=== PATIENT | female | born 1975 | race Caucasian/White ===

== ENCOUNTER 2017-01-02 16:18 | Emergency (ER) | payer BC ==
[2017-01-02] MEDS ORDERED: Ketorolac 60 MG/2 ML SDV IM ONE (16:49)
--- NOTE | 2017-01-02 16:52 | EDM.PDOC ---
ED HPI GENERAL MEDICAL PROBLEM - General Chief Complaint: Chest Pain Stated Complaint: CHEST PAIN Time Seen by Provider: 01/02/17 16:43 Source of Information: Reports: Patient, Family, RN Notes Reviewed History Limitations: Reports: No Limitations - History of Present Illness INITIAL COMMENTS - FREE TEXT/NARRATIVE: 41-year-old female presents emergency department day complaint of chest pain, she states the pain started a couple hours ago it is sharp stabbing came on at rest she does feel short of breath no nausea or diaphoresis and no history of heart disease remote history with her grandfather she does use tobacco products no history of diabetes Left Chest Pain Score (Numeric/FACES): 6 - Related Data Allergies Allergy/AdvReac Type Severity Reaction Status Date / Time fluticasone [From Flonase] AdvReac Headache Verified 01/02/17 16:24 Home Meds: Home Meds Fexofenadine [Dinora] 1 tab PO BEDTIME 01/02/17 [History] Levothyroxine [Synthroid] 1 tab PO DAILY 01/02/17 [History] Multivitamin [Multivitamins] 1 tab PO DAILY 01/02/17 [History] Sertraline [Zoloft] 1 tab PO DAILY 01/02/17 [History] Past Medical History Genitourinary History: Reports: Other (See Below) Other Genitourinary History: genetic disease of the kidney, 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 Psychiatric History: Reports: Depression Endocrine/Metabolic History: Reports: Hypothyroidism - Past Surgical History HEENT Surgical History: Reports: Adenoidectomy, Tonsillectomy Female Surgical History: Reports: Other (See Below) Other Female Surgeries/Procedures: re-implantation of ureters to the kidneys Social & Family History - Tobacco Use Smoking Status *Q: Heavy Tobacco Smoker Years of Tobacco use: 22 Packs/Tins Daily: 1 - Recreational Drug Use Recreational Drug Use: No ED ROS GENERAL - Review of Systems Review Of Systems: See Below Constitutional: Reports: No Symptoms HEENT: Reports: No Symptoms Respiratory: Reports: Shortness of Breath Cardiovascular: Reports: Chest Pain GI/Abdominal: Reports: No Symptoms : Reports: No Symptoms Musculoskeletal: Reports: No Symptoms Skin: Reports: No Symptoms Neurological: Reports: No Symptoms Psychiatric: Reports: No Symptoms. Denies: Anxiety ED EXAM, GENERAL - Physical Exam Exam: See Below Free Text/Narrative:: General: Female, not in any distress, alert and oriented x3 HEENT: head is atraumatic normocephalic, eyes pupils equal round reactive to light, sclera clear no conjunctivitis appreciated. Ears tympanic membranes clear and clark landmarks and light reflex are present bilaterally canals are clear. Nose no septal deviation, nares are clear, no blood present. Mouth mucosa is moist and pink no erythema or exudate noted in soft palate, tongue is midline uvula is midline, dentition is intact. Neck: Supple no thyromegaly no tracheal deviation. Nodes: Cervical nodes subclavicular nodes nontender no palpable lymphadenopathy noted. Lungs: clear to auscultation bilaterally with symmetrical respirations, no adventitious noise appreciated. CV: Regular rate and rhythm S1 and S2 appreciated no murmurs rubs or gallops noted. Thorax tender to palpation in the anterior area left chest Abdomen: Soft, nontender, no palpable masses or organomegaly appreciated, no distention no guarding bowel sounds are present, Neuro: Cranial nerves II through XII grossly intact Skin: Warm and dry, intact Extremities: No lower extremity edema appreciated, pedal pulse is +2. Course - Vital Signs Last Recorded V/S: Last Vital Signs Temp 97.9 F 01/02/17 16:22 Pulse 97 01/02/17 16:22 Resp 14 01/02/17 16:22 BP 137/82 01/02/17 16:22 Pulse Ox 96 01/02/17 16:22 - Orders/Labs/Meds Orders: Active Orders 24 hr Category Date Time Status Cardiac Monitoring [RC] .As Directed Care 01/02/17 16:47 Active EKG Documentation Completion [RC] ASDIRECTED Care 01/02/17 16:49 Active Chest 2V [CR] Stat Exams 01/02/17 16:49 Taken EKG 12 Lead [EK] Stat Ther 01/02/17 16:49 Ordered Labs: Laboratory Tests 01/02/17 01/02/17 Range/Units 16:47 16:47 WBC 18.0 H (4.5-11.0) K/uL RBC 4.70 (3.30-5.50) M/uL Hgb 13.5 (12.0-15.0) g/dL Hct 40.8 (36.0-48.0) % MCV 87 (80-98) fL MCH 29 (27-31) pg MCHC 33 (32-36) % Plt Count 380 (150-400) K/uL Neut % (Auto) 71 H (36-66) % Lymph % (Auto) 19 L (24-44) % [place] % (Auto) 6 (2-6) % Eos % (Auto) 3 (2-4) % Baso % (Auto) 1 (0-1) % Sodium 141 (140-148) mmol/L Potassium 3.7 (3.6-5.2) mmol/L Chloride 105 (100-108) mmol/L Carbon Dioxide 29 (21-32) mmol/L Anion Gap 6.6 (5.0-14.0) mmol/L BUN 8 (7-18) mg/dL Creatinine 1.0 (0.6-1.0) mg/dL Est Cr Clr Drug Dosing 67.96 mL/min Estimated GFR (MDRD) > 60 (>60) Glucose 98 (74-106) mg/dL Calcium 8.8 (8.5-10.1) mg/dL Total Bilirubin 0.3 (0.2-1.0) mg/dL AST 13 L (15-37) U/L ALT 19 (12-78) U/L Alkaline Phosphatase 84 (46-116) U/L CK-MB (CK-2) 0.9 (0-3.6) mg/mL Troponin I < 0.017 (0.000-0.056) ng/mL Total Protein 7.6 (6.4-8.2) g/dL Albumin 3.6 (3.4-5.0) g/dL Globulin 4.0 H (2.3-3.5) g/dL Albumin/Globulin Ratio 0.9 L (1.2-2.2) Meds: Medications Discontinued Medications Generic Name Dose Route Start Last Admin Trade Name Janq PRN Reason Stop Dose Admin Ketorolac Tromethamine 60 mg 01/02/17 16:49 01/02/17 17:06 Toradol IM 01/02/17 16:50 60 mg ONETIME ONE Administration Departure - Departure Time of Disposition: 17:49 Disposition: Home, Self-Care 01 Condition: Good Clinical Impression: Atypical chest pain Forms: ED Department Discharge Additional Instructions: Continue on your regular medications, recommend follow-up with your primary care for further evaluation of year elevated WBC Please followup with your primary care provider in 3-5 days if not better, please call return to the emergency department with worsening of symptoms. - My Orders Last 24 Hours: My Active Orders 01/02/17 16:47 Cardiac Monitoring [RC] .As Directed 01/02/17 16:49 EKG Documentation Completion [RC] ASDIRECTED Chest 2V [CR] Stat EKG 12 Lead [EK] Stat - Assessment/Plan Last 24 Hours: My Active Orders 01/02/17 16:47 Cardiac Monitoring [RC] .As Directed 01/02/17 16:49 EKG Documentation Completion [RC] ASDIRECTED Chest 2V [CR] Stat EKG 12 Lead [EK] Stat Plan: Assessment Acuity = acute Site and laterality = atypical chest pain, cocaine the patient with history of hypothyroidism Etiology = unclear etiology Manifestations = none Location of injury = Home Lab values = WBC elevated at 18 consistent leukocytosis however this is near her baseline which surround 14, troponin was negative remainder of CBC also negative EKG shows no acute process no ST elevations or depressions, chest x- ray I did review films myself I cannot appreciate any acute process, the official read from radiology is pending Plan I did review lab work EKG and chest x-ray results with her she did receive some relief with Toradol injection provided plan is to continue with the ibuprofen however she is to follow-up with her primary care provider for further evaluation of the elevated WBC which has been abnormal for over a year, heart score was 1 Patient was in agreement with the plan all questions were answered, they were instructed to return to the emergency department or call for worsening symptoms. This note was dictated using [employer] voice recognition software please call with any questions.
[2017-01-02 17:50] VITALS: BP 113/69
--- NOTE | 2017-01-03 09:57 | CR ---
Chest 2V INDICATION: Chest Pain COMPARISON: None FINDINGS: Two views. Heart size normal. Lungs are clear. No infiltrate or pleural effusion. No si gns of pulmonary edema. IMPRESSION: Negative chest.
== END 2017-01-02 18:03 | disposition home or self-care (01) ==
LOC: JP.ED 16:18
DX: R07.89 Other chest pain (principal); E03.9 Hypothyroidism, unspecified; F17.210 Nicotine dependence, cigarettes, uncomplicated; Z98.890 Other specified postprocedural states; Z79.899 Other long term (current) drug therapy; Z88.8 Allergy status to other drugs, medicaments and biological substances
CPT/HCPCS: 36415; 71020; 80053; 82553; 84484; 85025; 93005; 96372; 99285; J1885

== ENCOUNTER 2018-06-12 06:02 | Day surgery (SDC) | payer BC ==
[2018-06-12] MEDS ORDERED: Dextrose 5%-Lactated Ringers 1,000 ML IV SCH (06:30)
[2018-06-12] MEDS ORDERED: Midazolam 1 MG/ML 2 ML SDV ONE (07:17)
[2018-06-12] MEDS ORDERED: fentaNYL 100 MCG/2 ML SDV ONE (07:17)
[2018-06-12] MEDS ORDERED: Propofol 200 MG/20 ML SDV ONE (07:17)
[2018-06-12 09:59] VITALS: BP 119/78
--- NOTE | 2018-06-14 11:22 | OR ---
DATE OF PROCEDURE: 06/12/2018 PREOPERATIVE DIAGNOSIS: Fatigue associated with chronic diarrhea. POSTOPERATIVE DIAGNOSES: 1. Fatigue and chronic diarrhea. 2. Single small polyp in distal sigmoid colon (20 cm). 3. Otherwise normal-appearing colorectal mucosa. OPERATIVE PROCEDURES: Flexible colonoscopy with: 1. Collection of stool for microbiologic workup. 2. Random colorectal biopsies to rule out microscopic colitis (47851). 3. Polypectomy by snare technique at the site of sigmoid colon polyp (61323). ANESTHESIA: IV sedation. INDICATION FOR PROCEDURE: This is a 43-year-old presenting with some fatigue as well as some chronic diarrhea with frequent loose bowel movements. The plan is to proceed with a flexible colonoscopy with biopsies and/or polypectomy as indicated. We will also obtain collection of any remaining stool for microbiologic workup. Potential risks of the procedure including bleeding and perforation were discussed, and the patient wishes to proceed. DETAILS OF PROCEDURE: The patient was taken to the operating room and placed in a left lateral decubitus position. IV sedation was administered, after which the initial digital rectal exam was performed and was unremarkable. Colonoscope was then passed into the rectum with retroflexion revealing uncomplicated hemorrhoidal columns. The scope was then eventually passed to the cecum. The prep was quite good with there only being a small amount of stool present. The stool present did have a slightly mucoid consistency to it. The patient had a small polyp ranging around 3 mm in the distal sigmoid colon. Otherwise, there were no additional abnormalities in the colorectal mucosa identifiable. The patient had no diverticular disease. At this point, biopsies were obtained randomly beginning at the cecum, throughout the colon and rectum, and sent for histologic evaluation to rule out microscopic colitis. The area of polyp was encircled with a snare at the base and then cauterized off, and then this was retrieved and sent for histologic evaluation. Good hemostasis was noted at the polypectomy site. The scope was then withdrawn. The procedure was then concluded. The patient was taken to the recovery room in a satisfactory condition. The patient will be following up in early June with Dr. Hackett. If any striking findings are seen on the microbiologic workup or histologic evaluation in the interim, we will contact the patient earlier. Rupert Segundo MD Job #: [id number]
== END 2018-06-12 10:10 | disposition home or self-care (01) ==
LOC: JP.SDS 06:02
PROVIDERS: ATTEND Surgery
DX: K52.9 Noninfective gastroenteritis and colitis, unspecified (principal); R53.83 Other fatigue; K63.5 Polyp of colon; F17.200 Nicotine dependence, unspecified, uncomplicated
CPT/HCPCS: 45380; 45385; 87046; 87177; 87209; 87493; 87899; 88305; 89055; J2250; J2704; J3010; J7042

== ENCOUNTER 2018-07-16 01:51 | Observation (INO) | payer BC ==
[2018-07-16] MEDS ORDERED: Ketorolac 60 MG/2 ML SDV IM ONE (02:59)
[2018-07-16] MEDS ORDERED: Albuterol/Ipratropium 3.0-0.5 MG/3 ML Neb Soln NEB ONE (02:59)
[2018-07-16] MEDS ORDERED: Acetaminophen 325 MG Tab PO ONE (03:00)
--- NOTE | 2018-07-16 03:03 | EDM.PDOC ---
ED HPI GENERAL MEDICAL PROBLEM - General Chief Complaint: Respiratory Problem Stated Complaint: INFLUENZA A, BREATHING IS WORSE Time Seen by Provider: 07/16/18 02:54 Source of Information: Reports: Patient, Family, RN Notes Reviewed History Limitations: Reports: No Limitations - History of Present Illness INITIAL COMMENTS - FREE TEXT/NARRATIVE: 43-year-old female presents to the emergency department today with complaint of shortness of breath, she was recently diagnosed with influenza a started on Tamiflu, she is continued to have fevers body aches and now feels chest heaviness and difficulty breathing, was found to be hypoxic on initial admission Treatments 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: 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: Other (see below) Other Treatments 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: tamilflu - Related Data Allergies Allergy/AdvReac Type Severity Reaction Status Date / Time fluticasone [From Flonase] AdvReac Headache Verified 07/16/18 02:40 Home Meds: Home Meds Fexofenadine [Dinora] 180 mg PO BEDTIME 01/02/17 [History] Levothyroxine [Synthroid] 75 mcg PO DAILY 01/02/17 [History] Multivitamin [Multivitamins] 1 tab PO DAILY 01/02/17 [History] Sertraline [Zoloft] 100 mg PO DAILY 01/02/17 [History] Albuterol [Ventolin HFA] 2 puff IH Q4HR PRN 06/09/18 [History] Calcium Carbonate [Tums] 500 mg PO ASDIRECTED PRN 06/09/18 [History] Lactobacillus Acidophilus [Acidophilus] 1 each PO DAILY 06/09/18 [History] Mometasone Furoate [Nasonex] 2 sprays PETAR DAILY 06/09/18 [History] Fluticasone/Vilanterol [Breo Ellipta 100-25 MCG Inhalation Kit] 1 each IH [History] Past Medical History HEENT History: Reports: Other (See Below) Other HEENT History: wears glasses Cardiovascular History: Reports: Other (See Below) Other Cardiovascular History: chest pain - seen in ER x 1 Gastrointestinal History: Reports: Chronic Diarrhea Genitourinary History: Reports: Other (See Below) Other Genitourinary History: genetic disease of the kidney, 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 Psychiatric History: Reports: Depression Endocrine/Metabolic History: Reports: Hypothyroidism Dermatologic History: Reports: Other (See Below) Other Dermatologic History: adult acne - Infectious Disease History Infectious Disease History: Reports: Chicken Pox, Influenza - Past Surgical History HEENT Surgical History: Reports: Adenoidectomy, Tonsillectomy Female Surgical History: Reports: Other (See Below) Other Female Surgeries/Procedures: re-implantation of ureters to the kidneys Social & Family History - Tobacco Use Smoking Status *Q: Current Every Day Smoker Years of Tobacco use: 23 Packs/Tins Daily: 0.5 Second Hand Smoke Exposure: Yes - Caffeine Use Caffeine Use: Reports: Coffee, Soda - Recreational Drug Use Recreational Drug Use: No ED ROS GENERAL - Review of Systems Review Of Systems: See Below Constitutional: Reports: Fever, Chills, Weakness, Other (Body aches) HEENT: Reports: No Symptoms Respiratory: Reports: Shortness of Breath, Cough Cardiovascular: Reports: Chest Pain GI/Abdominal: Reports: No Symptoms : Reports: No Symptoms Musculoskeletal: Reports: No Symptoms Skin: Reports: No Symptoms Neurological: Reports: No Symptoms ED EXAM, GENERAL - Physical Exam Exam: See Below Exam Limited By: No Limitations General Appearance: Alert, No Apparent Distress Throat/Mouth: Normal Inspection, Normal Lips, Normal Teeth, Normal Gums, Normal Oropharynx, Normal Voice, No Airway Compromise Head: Atraumatic, Normocephalic Neck: Normal Inspection, Supple, Non-Tender, Full Range of Motion Respiratory/Chest: No Respiratory Distress, Lungs Clear, Normal Breath Sounds, No Accessory Muscle Use, Chest Non-Tender Cardiovascular: Regular Rate, Rhythm, No Murmur GI/Abdominal: Soft, Non-Tender Course - Vital Signs Last Recorded V/S: Last Vital Signs Temp 101.7 F H 07/16/18 03:06 Pulse 103 H 07/16/18 02:35 Resp 22 H 07/16/18 02:35 BP 113/72 07/16/18 02:35 Pulse Ox 89 L 07/16/18 02:35 - Orders/Labs/Meds Orders: Active Orders 24 hr Category Date Time Status EKG Documentation Completion [RC] ASDIRECTED Care 07/16/18 03:01 Active RT Aerosol Therapy [RC] ASDIRECTED Care 07/16/18 03:00 Active EKG 12 Lead [EK] Stat Ther 07/16/18 03:01 Ordered Labs: Laboratory Tests 07/16/18 07/16/18 07/16/18 Range/Units 03:12 03:12 03:12 WBC 15.5 H (4.5-11.0) K/uL RBC 4.64 (3.30-5.50) M/uL Hgb 13.1 (12.0-15.0) g/dL Hct 41.5 (36.0-48.0) % MCV 89 (80-98) fL MCH 28 (27-31) pg MCHC 32 (32-36) % Plt Count 357 (150-400) K/uL Neut % (Auto) 81 H (36-66) % Lymph % (Auto) 10 L (24-44) % [place] % (Auto) 9 H (2-6) % Eos % (Auto) 0 L (2-4) % Baso % (Auto) 0 (0-1) % D-Dimer, Quantitative < 100 (0.0-400.0) ng/mL Sodium (140-148) mmol/L Potassium (3.6-5.2) mmol/L Chloride (100-108) mmol/L Carbon Dioxide (21-32) mmol/L Anion Gap (5.0-14.0) mmol/L BUN (7-18) mg/dL Creatinine (0.6-1.0) mg/dL Est Cr Clr Drug Dosing mL/min Estimated GFR (MDRD) (>60) Glucose (74-106) mg/dL Calcium (8.5-10.1) mg/dL Total Bilirubin (0.2-1.0) mg/dL AST (15-37) U/L ALT (12-78) U/L Alkaline Phosphatase (46-116) U/L Troponin I < 0.017 (0.000-0.056) ng/mL Total Protein (6.4-8.2) g/dL Albumin (3.4-5.0) g/dL Globulin (2.3-3.5) g/dL Albumin/Globulin Ratio (1.2-2.2) 07/16/18 Range/Units 03:12 WBC (4.5-11.0) K/uL RBC (3.30-5.50) M/uL Hgb (12.0-15.0) g/dL Hct (36.0-48.0) % MCV (80-98) fL MCH (27-31) pg MCHC (32-36) % Plt Count (150-400) K/uL Neut % (Auto) (36-66) % Lymph % (Auto) (24-44) % [place] % (Auto) (2-6) % Eos % (Auto) (2-4) % Baso % (Auto) (0-1) % D-Dimer, Quantitative (0.0-400.0) ng/mL Sodium 140 (140-148) mmol/L Potassium 3.7 (3.6-5.2) mmol/L Chloride 100 (100-108) mmol/L Carbon Dioxide 28 (21-32) mmol/L Anion Gap 12.3 (5.0-14.0) mmol/L BUN 9 (7-18) mg/dL Creatinine 0.9 (0.6-1.0) mg/dL Est Cr Clr Drug Dosing 72.53 mL/min Estimated GFR (MDRD) > 60 (>60) Glucose 110 H (74-106) mg/dL Calcium 9.0 (8.5-10.1) mg/dL Total Bilirubin 0.3 (0.2-1.0) mg/dL AST 26 D (15-37) U/L ALT 20 (12-78) U/L Alkaline Phosphatase 82 (46-116) U/L Troponin I (0.000-0.056) ng/mL Total Protein 7.8 (6.4-8.2) g/dL Albumin 3.2 L (3.4-5.0) g/dL Globulin 4.6 H (2.3-3.5) g/dL Albumin/Globulin Ratio 0.7 L (1.2-2.2) Meds: Medications Discontinued Medications Generic Name Dose Route Start Last Admin Trade Name Freq PRN Reason Stop Dose Admin Acetaminophen 650 mg 07/16/18 03:00 07/16/18 03:06 Tylenol PO 07/16/18 03:01 650 mg NOW ONE Administration Albuterol/Ipratropium 3 ml 07/16/18 02:59 07/16/18 03:06 Duoneb 3.0-0.5 Mg/3 Ml NEB 07/16/18 03:00 3 ml ONETIME ONE Administration Ketorolac Tromethamine 60 mg 07/16/18 02:59 07/16/18 03:06 Toradol IM 07/16/18 03:00 60 mg ONETIME ONE Administration Departure - Departure Time of Disposition: 03:53 Disposition: Refer to Observation Condition: Fair Clinical Impression: Influenza A with pneumonia - Discharge Information Referrals: Paulino Hackett MD [Primary Care Provider] - Forms: ED Department Discharge - My Orders Last 24 Hours: My Active Orders 07/16/18 03:00 RT Aerosol Therapy [RC] ASDIRECTED 07/16/18 03:01 EKG Documentation Completion [RC] ASDIRECTED EKG 12 Lead [EK] Stat - Assessment/Plan Last 24 Hours: My Active Orders 07/16/18 03:00 RT Aerosol Therapy [RC] ASDIRECTED 07/16/18 03:01 EKG Documentation Completion [RC] ASDIRECTED EKG 12 Lead [EK] Stat Plan: Assessment Acuity = acute Site and laterality = pneumonia Etiology = influenza A Manifestations = hypoxia Location of injury = Home Lab values = WBC elevated 15.5 consistent leukocytosis, CMP unremarkable d- dimer is negative, troponin negative chest x-ray shows increased perihilar thickening no focal infiltrate EKG demonstrates sinus rhythm there is no ST elevations or depressions noted PVCs Plan Called discussed case with hospitalist assistant director of admissions at 350 agreed to come and evaluate the patient emergency department for admission This note was dictated using [employer] voice recognition software please call with any questions on syntax or grammar.
--- NOTE | 2018-07-16 03:45 | CRLCR ---
INDICATION: Influenza A, shortness of breath TECHNIQUE: Chest 2 views. COMPARISON: January 02, 2017 FINDINGS: Stable cardiomediastinal silhouette. Slight increase in perihilar markings bilaterally. No focal consolidation, effusion, or pneumothorax. Osseous structures intact. IMPRESSION: Slight increase in perihilar markings without focal consolidation. Dictated by Mariaelena Angela MD @ Jul 16 2018 3:43AM Signed by Dr. Mariaelena Angela @ Jul 16 2018 3:45AM
--- NOTE | 2018-07-16 04:53 | PCM.HP ---
H&P History of Present Illness - General Date of Service: 07/16/18 Admit Problem/Dx: Admission Diagnosis/Problem Admission Diagnosis/Problem Influenza with pneumonia Source of Information: Patient History Limitations: Reports: No Limitations - History of Present Illness Initial Comments - Free Text/Narative: - History of Present Illness 43-year-old female presents to the emergency department today with complaint of shortness of breath, she was recently diagnosed with influenza a started on Tamiflu, she is continued to have fevers body aches and now feels chest heaviness and difficulty breathing, was found to be hypoxic on initial admission 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 Onset of Symptoms: Reports: Gradual Symptom Onset Date: 07/12/18 Duration of Symptoms: Reports: Getting Worse Location: Reports: Generalized Severity: Severe Improves with: Reports: Medication Worsens with: Reports: None Associated Symptoms: Reports: Cough, Fever/Chills, Headaches, Loss of Appetite, Malaise, Shortness of Breath, Weakness - Related Data Allergies/Adverse Reactions: Allergies Allergy/AdvReac Type Severity Reaction Status Date / Time fluticasone [From Flonase] AdvReac Headache Verified 07/16/18 02:40 Home Medications: Home Meds Fexofenadine [Dinora] 180 mg PO BEDTIME 01/02/17 [History] Levothyroxine [Synthroid] 75 mcg PO DAILY 01/02/17 [History] Multivitamin [Multivitamins] 1 tab PO DAILY 01/02/17 [History] Sertraline [Zoloft] 100 mg PO DAILY 01/02/17 [History] Albuterol [Ventolin HFA] 2 puff IH Q4HR PRN 06/09/18 [History] Calcium Carbonate [Tums] 500 mg PO ASDIRECTED PRN 06/09/18 [History] Lactobacillus Acidophilus [Acidophilus] 1 each PO DAILY 06/09/18 [History] Mometasone Furoate [Nasonex] 2 sprays PETAR DAILY 06/09/18 [History] Fluticasone/Vilanterol [Breo Ellipta 100-25 MCG Inhalation Kit] 1 each IH DAILY 07/16/18 [History] Oseltamivir [Tamiflu] 75 mg PO BID 07/16/18 [History] Past Medical History HEENT History: Reports: Other (See Below) Other HEENT History: wears glasses Cardiovascular History: Reports: Other (See Below) Other Cardiovascular History: chest pain - seen in ER x 1 Gastrointestinal History: Reports: Chronic Diarrhea Genitourinary History: Reports: Other (See Below) Other Genitourinary History: genetic disease of the kidney, 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 Psychiatric History: Reports: Depression Endocrine/Metabolic History: Reports: Hypothyroidism Dermatologic History: Reports: Other (See Below) Other Dermatologic History: adult acne - Infectious Disease History Infectious Disease History: Reports: Chicken Pox, Influenza - Past Surgical History HEENT Surgical History: Reports: Adenoidectomy, Tonsillectomy Female Surgical History: Reports: Other (See Below) Other Female Surgeries/Procedures: re-implantation of ureters to the kidneys Social & Family History - Tobacco Use Smoking Status *Q: Current Every Day Smoker Years of Tobacco use: 23 Packs/Tins Daily: 0.5 Second Hand Smoke Exposure: Yes - Caffeine Use Caffeine Use: Reports: Coffee, Soda - Recreational Drug Use Recreational Drug Use: No - Living Situation & Occupation Living situation: Reports: , with Family (lives with [facility] in [place], [place].) H&P Review of Systems - Review of Systems: Review Of Systems: See Below General: Reports: Fever, Chills, Malaise, Weakness HEENT: Reports: Glasses Pulmonary: Reports: Shortness of Breath, Pleuritic Chest Pain, Cough Cardiovascular: Reports: No Symptoms Gastrointestinal: Reports: No Symptoms Genitourinary: Reports: No Symptoms Musculoskeletal: Reports: Muscle Pain, Muscle Stiffness Skin: Reports: No Symptoms Psychiatric: Reports: No Symptoms Neurological: Reports: No Symptoms Hematologic/Lymphatic: Reports: No Symptoms Immunologic: Reports: No Symptoms Exam - Exam Exam: See Below - Vital Signs Vital Signs: Last Vital Signs Temp 37.6 C 07/16/18 04:23 Pulse 95 07/16/18 04:23 Resp 20 07/16/18 04:23 BP 111/67 07/16/18 04:23 Pulse Ox 90 L 07/16/18 04:23 Weight: 82.2 kg - Exam Quality Assessment: Supplemental Oxygen General: Alert, Oriented, 4 HEENT: PERRLA, Hearing Intact, Mucosa Moist & Grant, Nares Patent, Normal Nasal Septum, Posterior Pharynx Clear, Conjunctiva Clear, EOMI, EACs Clear, TMs Clear Neck: Supple, Trachea Midline, 2 Lungs: Decreased Breath Sounds, Rhonchi (right lung ), Wheezing (bilateral) Cardiovascular: Regular Rate, Regular Rhythm, Normal S1, Normal S2 GI/Abdominal Exam: Normal Bowel Sounds, Soft Back Exam: Normal Inspection, Full Range of Motion Extremities: Normal Inspection, Normal Range of Motion Skin: Warm, Dry, Intact Neurological: Cranial Nerves Intact, Reflexes Equal Bilateral Neuro Extensive - Mental Status: Alert, Oriented x3, Normal Mood/Affect Psychiatric: Alert, Normal Affect, Normal Mood - Patient Data Lab Results Last 24 hrs: Laboratory Results - last 24 hr 07/16/18 07/16/18 07/16/18 Range/Units 03:12 03:12 03:12 WBC 15.5 H (4.5-11.0) K/uL RBC 4.64 (3.30-5.50) M/uL Hgb 13.1 (12.0-15.0) g/dL Hct 41.5 (36.0-48.0) % MCV 89 (80-98) fL MCH 28 (27-31) pg MCHC 32 (32-36) % Plt Count 357 (150-400) K/uL Neut % (Auto) 81 H (36-66) % Lymph % (Auto) 10 L (24-44) % [place] % (Auto) 9 H (2-6) % Eos % (Auto) 0 L (2-4) % Baso % (Auto) 0 (0-1) % D-Dimer, Quantitative < 100 (0.0-400.0) ng/mL Sodium (140-148) mmol/L Potassium (3.6-5.2) mmol/L Chloride (100-108) mmol/L Carbon Dioxide (21-32) mmol/L Anion Gap (5.0-14.0) mmol/L BUN (7-18) mg/dL Creatinine (0.6-1.0) mg/dL Est Cr Clr Drug Dosing mL/min Estimated GFR (MDRD) (>60) Glucose (74-106) mg/dL Calcium (8.5-10.1) mg/dL Total Bilirubin (0.2-1.0) mg/dL AST (15-37) U/L ALT (12-78) U/L Alkaline Phosphatase (46-116) U/L Troponin I < 0.017 (0.000-0.056) ng/mL Total Protein (6.4-8.2) g/dL Albumin (3.4-5.0) g/dL Globulin (2.3-3.5) g/dL Albumin/Globulin Ratio (1.2-2.2) 07/16/18 Range/Units 03:12 WBC (4.5-11.0) K/uL RBC (3.30-5.50) M/uL Hgb (12.0-15.0) g/dL Hct (36.0-48.0) % MCV (80-98) fL MCH (27-31) pg MCHC (32-36) % Plt Count (150-400) K/uL Neut % (Auto) (36-66) % Lymph % (Auto) (24-44) % [place] % (Auto) (2-6) % Eos % (Auto) (2-4) % Baso % (Auto) (0-1) % D-Dimer, Quantitative (0.0-400.0) ng/mL Sodium 140 (140-148) mmol/L Potassium 3.7 (3.6-5.2) mmol/L Chloride 100 (100-108) mmol/L Carbon Dioxide 28 (21-32) mmol/L Anion Gap 12.3 (5.0-14.0) mmol/L BUN 9 (7-18) mg/dL Creatinine 0.9 (0.6-1.0) mg/dL Est Cr Clr Drug Dosing 72.53 mL/min Estimated GFR (MDRD) > 60 (>60) Glucose 110 H (74-106) mg/dL Calcium 9.0 (8.5-10.1) mg/dL Total Bilirubin 0.3 (0.2-1.0) mg/dL AST 26 D (15-37) U/L ALT 20 (12-78) U/L Alkaline Phosphatase 82 (46-116) U/L Troponin I (0.000-0.056) ng/mL Total Protein 7.8 (6.4-8.2) g/dL Albumin 3.2 L (3.4-5.0) g/dL Globulin 4.6 H (2.3-3.5) g/dL Albumin/Globulin Ratio 0.7 L (1.2-2.2) Result Diagrams: 07/16/18 03:12 07/16/18 03:12 - Problem List (1) Influenza A with pneumonia SNOMED Code(s): 758793804 ICD Code: J09.X1 - INFLUENZA DUE TO IDENT NOVEL INFLUENZA A VIRUS W PNEUMONIA Status: Acute Current Visit: Yes Problem List Initiated/Reviewed/Updated: Yes Orders Last 24hrs: Active Orders 24 hr Category Date Time Status Patient Status Manage Transfer [TRANSFER] Routine ADT 07/16/18 04:36 Ordered EKG Documentation Completion [RC] ASDIRECTED Care 07/16/18 03:01 Active RT Aerosol Therapy [RC] ASDIRECTED Care 07/16/18 03:00 Active Resuscitation Status Routine Resus Stat 07/16/18 04:42 Ordered EKG 12 Lead [EK] Stat Ther 07/16/18 03:01 Ordered Assessment/Plan Comment:: ASSESSMENT / PLAN -chief complaint: Shortness of breath 43-year-old female presents to the emergency department today with complaint of shortness of breath, she was recently diagnosed with influenza a started on Tamiflu, she is continued to have fevers body aches and now feels chest heaviness and difficulty breathing, was found to be hypoxic on initial admission Treatments 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 MARKETING 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: Reports: Other (see below) 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 Acuity = acute Site and laterality = pneumonia Etiology = influenza A Manifestations = hypoxia Location of injury = Home Lab values = WBC elevated 15.5 consistent leukocytosis, CMP unremarkable d- dimer is negative, troponin negative chest x-ray shows increased perihilar thickening no focal infiltrate EKG demonstrates sinus rhythm there is no ST elevations or depressions noted PVCs Plan Called discussed case with hospitalist stock and station agent at [phone] agreed to come and evaluate the patient emergency department for admission Plan Influenza A with pneumonia -Admit Observation to [address] [place] [address] for further monitoring -Oxygen 2 liter per nasal cannula -IV fluids for rehydration NS at 125 mL per hour -Solumedrol 125mg once in ER, then IV 40 mg every 6 hours -Duoneb scheduled 4 times a day -Robitussin AC 10ml po every 4 hours as needed for cough -Tamiflu 75mg po bid, has her own medication -IV Rocephin 1 gram once daily -PO Zithromax 500 mg po once -Advise to notify nurses of any chest pain or other symptoms Hypothyroidism -continue home medication Tobacco use -Nicotine gum as needed, has her own at bedside Maintenance issues -Orders home meds: will use her own home meds -Nutrition: Regular diet -Bowers catheter not indicated at this time -DVT:ambulate -GI Prophalaxis; Protonix 40mg daily CODE STATUS: Full Admission status: Admit to Observation -I expect this patient to stay less than 24 hours, not to exceed 96 hours for evaluation and management of this problem. Disposition: home Primary care provider: Dr. Hackett Hospitalist: Dr. Tyson
[2018-07-16] MEDS ORDERED: Temazepam 15 MG Cap PO PRN (05:09)
[2018-07-16] MEDS ORDERED: Sodium Chloride 0.9% 1,000 ML IV SCH (05:09)
[2018-07-16] MEDS ORDERED: Ondansetron 4 MG Tab.DIS PO PRN (05:09)
[2018-07-16] MEDS ORDERED: methylPREDNISolone Sodium Succinate 125 MG/2 ML SDV IVPUSH ONE (05:09)
[2018-07-16] MEDS ORDERED: Docusate Sodium 100 MG Cap PO PRN (05:09)
[2018-07-16] MEDS ORDERED: Codeine/guaiFENesin 100mg-10 MG/5 ML Syrup 10 ML Cup PO PRN (05:09)
[2018-07-16] MEDS ORDERED: LORazepam 2 MG/ML SDV IV PRN (05:09)
[2018-07-16] MEDS ORDERED: Morphine 2 MG/ML Syringe IVPUSH PRN (05:09)
[2018-07-16] MEDS ORDERED: oxyCODONE 5 MG Tab PO PRN (05:09)
[2018-07-16] MEDS ORDERED: Acetaminophen 325 MG Tab PO PRN (05:09)
[2018-07-16] MEDS ORDERED: Azithromycin 250 MG Tab PO ONE (05:30)
[2018-07-16] MEDS ORDERED: cefTRIAXone 1 GM in Sodium Chloride 0.9% 50 ML IV SCH (06:00)
[2018-07-16] MEDS ORDERED: Levothyroxine 25 MCG Tab PO SCH (07:30)
[2018-07-16] MEDS: Albuterol/Ipratropium 3.0-0.5 MG/3 ML Neb Soln NEB SCH ×2 (07:31→10:56)
[2018-07-16] MEDS ORDERED: Ibuprofen 600 MG Tab PO PRN (09:00)
[2018-07-16] MEDS ORDERED: Pantoprazole 40 MG Vial IVPUSH SCH (09:00)
[2018-07-16] MEDS ORDERED: Oseltamivir 75 MG Cap PO SCH (09:00)
[2018-07-16] MEDS ORDERED: methylPREDNISolone Sodium Succinate 40 MG/1 ML SDV IVPUSH SCH (11:00)
[2018-07-16 11:08] VITALS: BP 97/54
--- NOTE | 2018-07-16 12:06 | PCM.DCSUM1 ---
Discharge Summary - Hospital Course Brief History: 43-year-old female with history of mild intermittent asthma and tobacco dependence who presented with fever, cough and shortness of breath. She was admitted for management of influenza A with hypoxic respiratory failure and initially some concern for possible pneumonia. Diagnosis: Stroke: No - Discharge Data Discharge Date: 07/16/18 Discharge Disposition: Home, Self-Care 01 Condition: Good - Discharge Diagnosis/Problem(s) (1) Influenza A SNOMED Code(s): 829303242 ICD Code: J10.1 - FLU DUE TO OTH IDENT INFLUENZA VIRUS W OTH RESP MANIFEST Status: Acute Current Visit: Yes (2) Tobacco dependence SNOMED Code(s): 50156491 ICD Code: F17.200 - NICOTINE DEPENDENCE, UNSPECIFIED, UNCOMPLICATED Status : Chronic Current Visit: Yes (3) Mild intermittent asthma SNOMED Code(s): 688835596 ICD Code: J45.20 - MILD INTERMITTENT ASTHMA, UNCOMPLICATED Status: Chronic Current Visit: Yes Qualifiers: Asthma complication type: uncomplicated Qualified Code(s): J45.20 - Mild intermittent asthma, uncomplicated (4) Acute respiratory failure with hypoxia SNOMED Code(s): 51225772, 548108060 ICD Code: J96.01 - ACUTE RESPIRATORY FAILURE WITH HYPOXIA Status: Acute Current Visit: Yes - Patient Summary/Data Hospital Course: Amanda presented to the emergency room with fever, shortness of breath, chest heaviness and myalgias with a recent diagnosis of influenza A. She had been on Tamiflu for nearly 2 days. In the emergency room she was found to be hypoxic and required supplemental oxygen. She was started on steroids and provided nebulizer therapies and was admitted to the hospital with her hypoxia. Initially there was some concern for pneumonia on top of her influenza and she received doses of ceftriaxone and azithromycin. Overnight following hospitalization her temperature normalized after having very high fevers in the emergency room on presentation. By the morning after admission her oxygenation has improved but she did remain on supplemental oxygen. Symptomatically she was feeling much better with resolution of the chest heaviness and no complaints of shortness of breath. Cough had been minimal. Later in the morning we were able to wean her off supplemental oxygen. She is very interested in going home at this time. I think she is safe for outpatient management. I elected to stop antibiotics since no pneumonia was seen on the chest x-ray and I suspect this is all related to influenza a. She will be going home with a prescription for steroids which she will use for the next 3 days in addition to her Tamiflu. She will follow-up if symptoms do not continue to get better or if they get worse. - Patient Instructions Diet: Regular Diet as Tolerated Activity: As Tolerated Showering/Bathing: May Shower Notify Provider of: Fever, Increased Pain Other/Special Instructions: 1. You were in the hospital for management of acute influenza A infection complicated by hypoxic respiratory failure. Your condition has been improving with steroids and Tamiflu treatment. Please continue taking Tamiflu as previously prescribed. I would recommend that you take prednisone twice daily with breakfast and supper. Your next dose will be due tonight. 2. Continue your usual home medications as previously prescribed. 3. Follow up if symptoms do not continue to get better or if they get worse. 4. Seek medical attention if you have fever greater than 101 that does not respond to acetaminophen or ibuprofen, severe shortness of breath or if you develop significant chest pain or pressure. - Discharge Plan *PRESCRIPTION DRUG MONITORING PROGRAM REVIEWED*: Not Applicable *COPY OF PRESCRIPTION DRUG MONITORING REPORT IN PATIENT BEATRIZ: Not Applicable Prescriptions/Med Rec: predniSONE [Prednisone] 20 mg PO BIDAC #5 tablet Home Medications: Home Meds Fexofenadine [Dinora] 180 mg PO BEDTIME 01/02/17 [History] Levothyroxine [Synthroid] 75 mcg PO DAILY 01/02/17 [History] Multivitamin [Multivitamins] 1 tab PO DAILY 01/02/17 [History] Sertraline [Zoloft] 100 mg PO DAILY 01/02/17 [History] Albuterol [Ventolin HFA] 2 puff IH Q4HR PRN 06/09/18 [History] Calcium Carbonate [Tums] 500 mg PO ASDIRECTED PRN 06/09/18 [History] Lactobacillus Acidophilus [Acidophilus] 1 each PO DAILY 06/09/18 [History] Mometasone Furoate [Nasonex] 2 sprays PETAR DAILY 06/09/18 [History] Fluticasone/Vilanterol [Breo Ellipta 100-25 MCG Inhalation Kit] 1 each IH DAILY 07/16/18 [History] Oseltamivir [Tamiflu] 75 mg PO BID 07/16/18 [History] predniSONE [Prednisone] 20 mg PO BIDAC #5 tablet 07/16/18 [Rx] Oxygen Therapy Mode: Room Air Patient Handouts: Influenza, Adult Referrals: Paulino Hackett MD [Primary Care Provider] - (f/u as needed if symptoms do not continue to get better) - Discharge Summary/Plan Comment DC Time >30 min.: No - Patient Data Vitals - Most Recent: Last Vital Signs Temp 35.9 C 07/16/18 11:07 Pulse 62 07/16/18 11:39 Resp 16 07/16/18 11:07 BP 97/54 L 07/16/18 11:07 Pulse Ox 90 L 07/16/18 11:39 Weight - Most Recent: 82.2 kg I&O - Last 24 hours: Intake & Output 07/15/18 07/16/18 07/16/18 22:59 06:59 14:59 Intake Total 50 Balance 50 Lab Results - Last 24 hrs: Laboratory Results - last 24 hr 07/16/18 07/16/18 07/16/18 Range/Units 03:12 03:12 03:12 WBC 15.5 H (4.5-11.0) K/uL RBC 4.64 (3.30-5.50) M/uL Hgb 13.1 (12.0-15.0) g/dL Hct 41.5 (36.0-48.0) % MCV 89 (80-98) fL MCH 28 (27-31) pg MCHC 32 (32-36) % Plt Count 357 (150-400) K/uL Neut % (Auto) 81 H (36-66) % Lymph % (Auto) 10 L (24-44) % [place] % (Auto) 9 H (2-6) % Eos % (Auto) 0 L (2-4) % Baso % (Auto) 0 (0-1) % D-Dimer, Quantitative < 100 (0.0-400.0) ng/mL Sodium (140-148) mmol/L Potassium (3.6-5.2) mmol/L Chloride (100-108) mmol/L Carbon Dioxide (21-32) mmol/L Anion Gap (5.0-14.0) mmol/L BUN (7-18) mg/dL Creatinine (0.6-1.0) mg/dL Est Cr Clr Drug Dosing mL/min Estimated GFR (MDRD) (>60) Glucose (74-106) mg/dL Calcium (8.5-10.1) mg/dL Total Bilirubin (0.2-1.0) mg/dL AST (15-37) U/L ALT (12-78) U/L Alkaline Phosphatase (46-116) U/L Troponin I < 0.017 (0.000-0.056) ng/mL Total Protein (6.4-8.2) g/dL Albumin (3.4-5.0) g/dL Globulin (2.3-3.5) g/dL Albumin/Globulin Ratio (1.2-2.2) 07/16/18 Range/Units 03:12 WBC (4.5-11.0) K/uL RBC (3.30-5.50) M/uL Hgb (12.0-15.0) g/dL Hct (36.0-48.0) % MCV (80-98) fL MCH (27-31) pg MCHC (32-36) % Plt Count (150-400) K/uL Neut % (Auto) (36-66) % Lymph % (Auto) (24-44) % [place] % (Auto) (2-6) % Eos % (Auto) (2-4) % Baso % (Auto) (0-1) % D-Dimer, Quantitative (0.0-400.0) ng/mL Sodium 140 (140-148) mmol/L Potassium 3.7 (3.6-5.2) mmol/L Chloride 100 (100-108) mmol/L Carbon Dioxide 28 (21-32) mmol/L Anion Gap 12.3 (5.0-14.0) mmol/L BUN 9 (7-18) mg/dL Creatinine 0.9 (0.6-1.0) mg/dL Est Cr Clr Drug Dosing 72.53 mL/min Estimated GFR (MDRD) > 60 (>60) Glucose 110 H (74-106) mg/dL Calcium 9.0 (8.5-10.1) mg/dL Total Bilirubin 0.3 (0.2-1.0) mg/dL AST 26 D (15-37) U/L ALT 20 (12-78) U/L Alkaline Phosphatase 82 (46-116) U/L Troponin I (0.000-0.056) ng/mL Total Protein 7.8 (6.4-8.2) g/dL Albumin 3.2 L (3.4-5.0) g/dL Globulin 4.6 H (2.3-3.5) g/dL Albumin/Globulin Ratio 0.7 L (1.2-2.2) Med Orders - Current: Current Medications Acetaminophen (Tylenol) 650 mg PO Q4H PRN PRN Reason: Pain (Mild 1-3)/fever Albuterol/Ipratropium (Duoneb 3.0-0.5 Mg/3 Ml) 3 ml NEB QIDRT [facility] Last Admin: 07/16/18 10:56 Dose: 3 ml Docusate Sodium (Colace) 100 mg PO BID PRN PRN Reason: Constipation Guaifenesin/Codeine Phosphate (Robitussin Ac) 10 ml PO Q4H PRN PRN Reason: Cough Sodium Chloride (Normal Saline) 1,000 mls @ 125 mls/hr IV ASDIRECTED [facility] Last Admin: 07/16/18 06:25 Dose: 125 mls/hr Ibuprofen (Motrin) 600 mg PO Q6H PRN PRN Reason: Pain/Fever Levothyroxine Sodium (Levothyroxine) 75 mcg PO ACBREAKFAST [facility] Last Admin: 07/16/18 08:56 Dose: Not Given Lorazepam (Ativan) 1 mg IV Q6H PRN PRN Reason: Nausea/Vomiting Methylprednisolone Sodium Succinate (Solu-Medrol) 40 mg IVPUSH Q6H [facility] Morphine Sulfate (Morphine) 2 mg IVPUSH Q2H PRN PRN Reason: Pain (severe 7-10) Ondansetron HCl (Zofran Odt) 4 mg PO Q6H PRN PRN Reason: Nausea able to take PO Oseltamivir Phosphate (Tamiflu) 75 mg PO BID [facility] Last Admin: 07/16/18 08:57 Dose: 75 mg Oxycodone HCl (Oxycodone) 5 mg PO Q4H PRN PRN Reason: Pain (moderate 4-6) Pantoprazole Sodium (Protonix Iv) 40 mg IVPUSH DAILY [facility] Last Admin: 07/16/18 09:00 Dose: 40 mg Sertraline HCl (Zoloft) 100 mg PO BEDTIME [facility] Temazepam (Restoril) 15 mg PO BEDTIME PRN PRN Reason: Sleep Discontinued Medications Acetaminophen (Tylenol) 650 mg PO NOW ONE Stop: 07/16/18 03:01 Last Admin: 07/16/18 03:06 Dose: 650 mg Albuterol/Ipratropium (Duoneb 3.0-0.5 Mg/3 Ml) 3 ml NEB ONETIME ONE Stop: 07/16/18 03:00 Last Admin: 07/16/18 03:06 Dose: 3 ml Azithromycin (Zithromax) 500 mg PO DAILY [facility] Azithromycin (Zithromax) 500 mg PO ONETIME ONE Stop: 07/16/18 05:31 Last Admin: 07/16/18 05:48 Dose: 500 mg Ceftriaxone Sodium 1 gm/ (Sodium Chloride) 50 mls @ 100 mls/hr IV Q24H [facility] Last Admin: 07/16/18 05:49 Dose: 100 mls/hr Ketorolac Tromethamine (Toradol) 60 mg IM ONETIME ONE Stop: 07/16/18 03:00 Last Admin: 07/16/18 03:06 Dose: 60 mg Methylprednisolone Sodium Succinate (Solu-Medrol) 125 mg IVPUSH ONETIME ONE Stop: 07/16/18 05:10 Last Admin: 07/16/18 05:48 Dose: 125 mg - Exam Quality Assessment: Denies: Supplemental Oxygen General: Reports: Alert, Oriented, Cooperative, No Acute Distress Lungs: Reports: Clear to Auscultation, Normal Respiratory Effort. Denies: Wheezing Cardiovascular: Reports: Regular Rate, Regular Rhythm GI/Abdominal Exam: Soft, No Distention Extremities: No Pedal Edema Psy/Mental Status: Reports: Alert, Normal Affect
[2018-07-16] MEDS ORDERED: Sertraline 50 MG Tab PO SCH (21:00)
[2018-07-17] MEDS ORDERED: Azithromycin 250 MG Tab PO SCH (09:00)
== END 2018-07-16 12:45 | disposition home or self-care (01) ==
LOC: JP.ED 01:51 → JP.MS 05:00
PROVIDERS: ADMIT Internal Medicine; ATTEND Internal Medicine
DX: J10.1 Influenza due to other identified influenza virus with other respiratory manifestations (principal); J96.01 Acute respiratory failure with hypoxia; J45.20 Mild intermittent asthma, uncomplicated; E03.9 Hypothyroidism, unspecified; F17.200 Nicotine dependence, unspecified, uncomplicated; Z88.8 Allergy status to other drugs, medicaments and biological substances; Z79.51 Long term (current) use of inhaled steroids; Z79.52 Long term (current) use of systemic steroids; Z79.899 Other long term (current) drug therapy
CPT/HCPCS: 36415; 71046; 80053; 84484; 85025; 85379; 93005; 94640; 94762; 96372; 99285; A9270; C9113; J0696; J1885; J2920; J2930; J7030; J7050; 96361; 96365; 96375; 96376; G0378; J7620-GY

== ENCOUNTER 2021-07-29 03:05 | Emergency (ER) | payer BC, OTHER ==
[2021-07-29 04:43] LABS: CORONAVIRUS COVID-19 NAA NEGATIVE (NEGATIVE)
[2021-07-29] MEDS ORDERED: Sodium Chloride 0.9% 10 ML Syringe FLUSH PRN (06:43)
[2021-07-29] MEDS ORDERED: Heparin Sodium/D5W 25,000 UNITS/500 ML BAG IV SCH (07:00)
[2021-07-29] MEDS ORDERED: Heparin Sodium 5,000 Units/ML Vial IVPUSH ONE (07:13)
[2021-07-29 07:27] VITALS: PULSE 80
[2021-07-29] MEDS ORDERED: Morphine 4 MG/ML Syringe IVPUSH ONE (07:36)
[2021-07-29] MEDS ORDERED: Morphine 4 MG/ML Syringe ONE (07:50)
[2021-07-29] MEDS ORDERED: Aspirin 81 MG Tab.Chew PO ONE (08:12)
[2021-07-29] MEDS ORDERED: Nitroglycerin/D5W 25 MG/250 ML BOTTLE IV SCH (08:15)
[2021-07-29 08:47] VITALS: BP 113/79
== END 2021-07-29 08:47 ==
LOC: JP.ED 03:05
DX: J44.9 Chronic obstructive pulmonary disease, unspecified (principal); I25.9 Chronic ischemic heart disease, unspecified; R77.8 Other specified abnormalities of plasma proteins; E03.9 Hypothyroidism, unspecified; F17.200 Nicotine dependence, unspecified, uncomplicated; Z88.8 Allergy status to other drugs, medicaments and biological substances; Z79.899 Other long term (current) drug therapy; Z20.822 Contact with and (suspected) exposure to COVID-19
CPT/HCPCS: 0241U; 36415; 71045; 80048; 80076; 84484; 85025; 93005; 93010; 96365; 96375; 99283; 99285-25; A9270-GY; J1644; J2270; J3490

== ENCOUNTER 2025-03-09 05:58 | Emergency (ER) | payer BC, OTHER ==
[2025-03-09] MEDS ORDERED: Nitroglycerin 0.4 MG Tab.SL SL PRN (06:55)
[2025-03-09] MEDS ORDERED: Sodium Chloride 0.9% 10 ML Syringe FLUSH PRN (06:55)
[2025-03-09 07:02] LABS: A/G RATIO 0.9 (1.2-2.2); ALANINE AMINOTRANSFERASE,ALT 27 U/L (12-78); ASPARTATE AMNIOTRANSFERASE,AST 26 U/L (15-37); BILIRUBIN TOTAL 0.4 mg/dL (0.2-1.0); BLOOD UREA NITROGEN,BUN 15 mg/dL (7-18); CARBON DIOXIDE,CO2 26 mmol/L (21-32); CHLORIDE,CL 100 mmol/L (100-108); CREATININE 1.1 mg/dL (0.6-1.0); EST CRCL DRUG DOSING (CG) 56.89 mL/min; ESTIMATED GFR 62 mL/min (>60); GLUCOSE RANDOM 150 mg/dL (74-106); PLATELET COUNT,PLT 421 K/uL (130-375); POTASSIUM,K 4.8 mmol/L (3.6-5.2); PROTEIN TOTAL,TP 7.6 g/dL (6.4-8.2); RED BLOOD CELL COUNT 4.93 M/uL (3.77-5.24); SODIUM,NA 135 mmol/L (140-148); TROPONIN I HIGH SENSITIVITY < 4.0 pg/mL (<=60.3); WHITE BLOOD CELL COUNT,WBC 20.7 K/uL (3.2-11.0)
[2025-03-09] MEDS: Alum Hydrox/Mag Hydrox/Simeth 15 ML, Lidocaine 2% 15 ML PO ONE (07:04)
[2025-03-09 07:05] VITALS: PULSE 79
[2025-03-09 07:14] LABS: ATYPICAL LYMPHOCYTES FEW; EOSINOPHILS ABSOLUTE MAN 1.24 K/uL (0.00-0.40); EOSINOPHILS PERCENT MAN 6 % (2-4); LYMPHOCYTES ABSOLUTE MAN 6.21 K/uL (0.8-3.3); LYMPHOCYTES PERCENT MAN 30 % (24-44); MONOCYTES ABSOLUTE MAN 1.45 K/uL (0.20-0.90); MONOCYTES PERCENT MAN 7 % (2-6); NEUTROPHILS ABSOLUTE MAN 11.80 K/uL (1.0-7.6); SEG NEUTROPHILS PERCENT MAN 57 % (36-66)
[2025-03-09 08:07] VITALS: BP 113/84
== END 2025-03-09 08:16 | disposition home or self-care (01) ==
LOC: JP.ED 05:58
DX: R10.13 Epigastric pain (principal); F17.200 Nicotine dependence, unspecified, uncomplicated; Z88.8 Allergy status to other drugs, medicaments and biological substances; Z91.048 Other nonmedicinal substance allergy status; Z79.82 Long term (current) use of aspirin; Z79.899 Other long term (current) drug therapy
CPT/HCPCS: 36415; 80053; 84484; 85025; 93005; 99285; J3490; A9270-GY

== ENCOUNTER 2025-04-22 09:00 | Day surgery (SDC) | payer OTHER ==
[2025-04-22] MEDS ORDERED: Propofol 200 MG/20 ML SDV ONE (09:31)
[2025-04-22] MEDS ORDERED: fentaNYL 50 MCG/ML SDV ONE (09:31)
[2025-04-22] MEDS: Lactated Ringers 1,000 ML IV SCH (11:07)
[2025-04-22 12:20] VITALS: BP 119/80; PULSE 70
== END 2025-04-22 12:25 | disposition home or self-care (01) ==
LOC: JP.SDS 09:00
PROVIDERS: ATTEND Surgery
DX: K22.89 Other specified disease of esophagus (principal); K20.90 Esophagitis, unspecified without bleeding; E03.9 Hypothyroidism, unspecified; Z88.8 Allergy status to other drugs, medicaments and biological substances; Z91.09 Other allergy status, other than to drugs and biological substances; F17.200 Nicotine dependence, unspecified, uncomplicated; Z79.82 Long term (current) use of aspirin; Z79.899 Other long term (current) drug therapy
CPT/HCPCS: 00731; 43239; J2704; J3010; J7120